=== PATIENT | female | born 1975 | race Caucasian/White ===

== ENCOUNTER 2016-10-06 12:14 | Emergency (ER) | payer OTHER ==
[2016-10-06 12:21] VITALS: BP 174/107
--- NOTE | 2016-10-06 12:53 | ERNOTE ---
Medical Problem HPI - Narrative Date of Service: 10/06/16 - General Chief Complaint: Laceration Time Seen by Provider: 10/06/16 12:43 Source: patient Exam Limitations: no limitations - Immun/Allergies/Home Medications Immunizations: IMMUNIZATION HX Immunizations Up to Date Yes Allergies/Adverse Reactions: Allergies shellfish derived Allergy (Intermediate, Verified 10/06/16 12:21) rash, swelling, difficulty breathing iodine Allergy (Mild, Verified 10/06/16 12:21) rash bee venom (honey bee) Allergy (Verified 10/06/16 12:21) Other Home Medications: HOME MEDICATIONS Lisinopril [Zestril] 20 mg PO DAILY 01/13/13 [Last Taken Unknown] Lorazepam [Ativan] 2 mg PO BID 09/03/15 [Last Taken Unknown] Naproxen [Naprosyn] 500 mg PO BID #20 tablet 04/23/16 [Last Taken Unknown] - History of Present History Narrative: Accidentally cut the tip of 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 Thinks maybe it went down to bone. Timing: other Severity: mild, moderate Modifying Factors - (Improves): Present: rest Modifying Factors - (Worsens): Present: movement Review of Systems - Review of Systems Constitutional: Present: no symptoms reported EYE: Present: no symptoms reported ENT: Present: no symptoms reported Respiratory: Present: no symptoms reported Cardiology: Present: no symptoms reported Gastrointestinal/Abdominal: Present: no symptoms reported Genitourinary: Present: no symptoms reported Musculoskeletal: Present: no symptoms reported Skin: Present: See HPI Neurological: Present: no symptoms reported Endocrine: Present: no symptoms reported Hematologic/Lymphatic: Present: no symptoms reported Psych: Present: no symptoms reported All Other Systems: All systems neg except as marked - Patient's Past Medical History Patient History - Medical: Anxiety, Depression, Migraines Patient History - Cardiac/Respiratory: Hypertension Patient History - Cancer: No Hx of Cancer Patient History - Surgical Procedures: Appendectomy, , D & C, Tubal Ligation Patient History - Other: None LMP (Calendar): 09/01/15 - Social History Living Situations: home Psych History: Hx of Anxiety, Hx of Depression Does anyone smoke in the home?: Yes Smoking Status: Current every day smoker Have you smoked in the past 12 months: Yes Alcohol Use: rarely Drug Use: none - Immunizations Immunizations Up to Date: Yes Physical Exam - Physical Exam General Appearance: Present: wd/wn, no apparent distress Eye Exam: Normal inspection: bilateral, PERRL: bilateral, EOMI: bilateral Ears, Nose, Throat: Present: normal ENT inspection, hearing grossly normal Neck: Present: normal inspection Respiratory: Present: no respiratory distress Cardiovascular/Chest: Present: regular rate, rhythm Extremity Exam: Present: no edema, other - 1 cm laceration, approximated, clean , distal right index finger, not involving nail Neurological Exam: Present: alert, oriented, normal mood/affect, no motor/ sensory deficits Skin Exam: Present: normal color, warm/dry ED Progress - Vital Signs Patient's Vital Signs:: I have reviewed the patient's vital signs. Vital Signs: Vital Signs 10/06/16 12:18 Temperature 35.4 C L Pulse Rate 64 Respiratory 14 Rate Blood Pressure 174/107 O2 Sat by Pulse 98 Oximetry - X-Ray X-Ray #1 X-Ray: hand Interpretation: Interp. by me - no sign of bony involvement - Progress/Reassessment Chief Complaint: Laceration Procedures Right Distal Finger 2nd Digit Length of Repair/Wound (cm): 1 Wound's Depth/Shape: into muscle, linear Wound Explored: clean Wound Intervention: irrigated w/saline Distal NVT: neuro/vasc intact, no tendon injury Wound Repaired With: no closure required Wound Dressing: sterile dressing applied Complications: Pt rod procedure well Departure - Departure Clinical Impression: Laceration Disposition: Home self-care Condition: Good Instructions: Laceration Care, Adult, [id number] Additional Instructions: Keep the wound clean, dry, protected and intact. Come back to our Occupational Health clinic in 2 days. Referrals: Aashish Marte MD [Primary Care Provider] -
[2016-10-06] MEDS ORDERED: DIPHTH,PERTUSS(ACELL),TET VAC 0.5 ML VIAL IM ONE ×2 (12:54→13:05)
== END 2016-10-06 13:56 | disposition home or self-care (01) ==
LOC: ER 12:14
PROC: 2W3JX1Z Immobilization of Right Finger using Splint (ICD-10-PCS; principal; 2016-10-06)
DX: S61.310A Laceration without foreign body of right index finger with damage to nail, initial encounter (principal); F17.210 Nicotine dependence, cigarettes, uncomplicated; I10 Essential (primary) hypertension; F41.9 Anxiety disorder, unspecified; W26.0XXA Contact with knife, initial encounter; Y93.G1 Activity, food preparation and clean up; Y92.511 Restaurant or cafe as the place of occurrence of the external cause; Y99.0 Civilian activity done for income or pay; Z23 Encounter for immunization

== ENCOUNTER 2017-03-17 15:08 | Emergency (ER) | payer OTHER ==
[2017-03-17] MEDS ORDERED: ACETAMINOPHEN 325 MG TABLET PO ONE (16:30)
[2017-03-17] MEDS ORDERED: IBUPROFEN 400 MG TABLET PO ONE (16:30)
--- NOTE | 2017-03-17 16:39 | ERNOTE ---
Lower Extremity HPI - Narrative Date of Service: 03/17/17 - General Lower Extremities Pain: 5th toe: left Time Seen by Provider: 03/17/17 15:49 Source: patient Exam Limitations: no limitations - Immun/Allergies/Home Medications Immunizations: IMMUNIZATION HX Immunizations Up to Date Yes History of Influenza Vaccine No Hx Pneumococcal Vaccination No Allergies/Adverse Reactions: Allergies Allergy/AdvReac Type Severity Reaction Status Date / Time shellfish derived Allergy Intermediate rash, Verified 03/17/17 15:21 swelling, difficulty breathing iodine Allergy Mild rash Verified 03/17/17 15:21 pineapple Allergy Verified 03/17/17 15:21 venom-honey bee Allergy Other Verified 03/17/17 15:21 [bee venom (honey bee)] Home Medications: HOME MEDICATIONS Lisinopril [Zestril] 20 mg PO DAILY 01/13/13 [Last Taken Unknown] Acetaminophen [Tylenol] 650 mg PO QID PRN #30 tablet 03/17/17 [Last Taken Unknown] Ibuprofen [Motrin] 800 mg PO TID PRN #30 tab 03/17/17 [Last Taken Unknown] - Pain Score Pain Score #1 Pain Score: 7 - History of Present Illness Narrative: Patient is a 41 year old female who presents to ER with complaints of pain in left 5th digit after stubbing toe on coffee table about 2100 last night. Took last Tylenol this am. Date (Duration): 03/16/17 Time (Timing): 21:00 Occurred: other - last night Location of Incident: home Method of Injury: Reports: direct blow Reason for Fall: Reports: other - NA Loss of Consciousness: Reports: no loss of consciousness Modifying Factors - (Improves): Reports: cold therapy, immobilization Modifying Factors - (Worsens): Reports: movement Associated Symptoms: Denies: unable to bear weight, snapping, popping sensation , dizzy/light headedness, headache, weakness, sensory loss Other Injuries: Reports: none Subsequent Symptoms: Denies: sensory loss, numbness, motor loss Review of Systems - Review of Systems Constitutional: Present: no symptoms reported EYE: Present: no symptoms reported ENT: Present: no symptoms reported Respiratory: Present: no symptoms reported Cardiology: Present: no symptoms reported Gastrointestinal/Abdominal: Present: no symptoms reported Genitourinary: Present: no symptoms reported Musculoskeletal: Present: joint pain - left 5th digit, joint swelling - left 5th digit Skin: Present: other - bruising to left 5th digit Neurological: Present: no symptoms reported Endocrine: Present: no symptoms reported Hematologic/Lymphatic: Present: no symptoms reported Psych: Present: no symptoms reported - Patient's Past Medical History Patient History - Medical: Anxiety, Depression, Migraines Patient History - Cardiac/Respiratory: Hypertension Patient History - Cancer: No Hx of Cancer Patient History - Surgical Procedures: Appendectomy, , D & C, Tubal Ligation Patient History - Other: None LMP (females 10-50): 1 month LMP (Calendar): 09/01/15 - Social History Living Situations: home Psych History: Hx of Anxiety, Hx of Depression Does anyone smoke in the home?: Yes Alcohol Use: rarely Drug Use: none - Immunizations Immunizations Up to Date: Yes Hx Pneumococcal Vaccination: No History of Influenza Vaccine: No Physical Exam - Physical Exam General Appearance: Present: wd/wn, alert, no apparent distress Head Exam: Present: normal inspection, no evidence of injury Eye Exam: Normal inspection: bilateral, PERRL: bilateral Ears, Nose, Throat: Present: normal ENT inspection, normal pharynx. Absent: dry mucous membranes Neck: Present: normal inspection, nontender, supple, full range of motion, limited range of motion Respiratory: Present: no respiratory distress, normal breath sounds, no accessory muscle use, chest nontender, lungs clear Cardiovascular/Chest: Present: regular rate, rhythm, no murmur, normal peripheral pulses Rectal Exam: Present: deferred Back Exam: Present: normal inspection, normal range of motion, no CVA tenderness , no vertebral tenderness Extremity Exam: Present: normal inspection, normal range of motion, no edema, other - tenderness and bruising to left 5th toe Neurological Exam: Present: alert, oriented, normal mood/affect, no motor/ sensory deficits Skin Exam: Present: normal color, warm/dry Lymphatic Exam: Present: no adenopathy ED Progress - Vital Signs Patient's Vital Signs:: I have reviewed the patient's vital signs. Vital Signs: Vital Signs 03/17/17 15:19 Temperature 36.6 C Pulse Rate 81 Respiratory 16 Rate O2 Sat by Pulse 97 Oximetry - X-Ray X-Ray #1 X-Ray: toe X-ray Comments: No obvious fractures or dislocations - Progress/Reassessment Chief Complaint: Lower Extremity Pain/ Injury Progress:: Unchanged Departure Clinical Impression: Contusion of toe, left Qualifiers: Encounter type: initial encounter Toe: lesser toe Damage to nail status: without damage Qualified Code(s): S90.122A - Contusion of left lesser toe(s) without damage to nail, initial encounter - Departure Disposition: Home self-care Condition: Good Instructions: Foot Contusion, [id number], Form - Excuse from Work, School, or Physical Activity Additional Instructions: Rest, ice, elevate foot as much as possible. Tylenol and Ibuprofen for pain, alternate every 4 hours for pain and swelling. "Jaime Tape" toes together for comfort Referrals: Aashish Marte MD [Primary Care Provider] - Prescriptions: Acetaminophen [Tylenol] 650 mg PO QID PRN #30 tablet PRN Reason: Pain Ibuprofen [Motrin] 800 mg PO TID PRN #30 tab PRN Reason: Pain
[2017-03-17] MEDS ORDERED: ACETAMINOPHEN 325 MG TABLET ONE (16:51)
[2017-03-17] MEDS ORDERED: IBUPROFEN 400 MG TABLET ONE (16:51)
[2017-03-17 19:34] VITALS: BP 127/79
== END 2017-03-17 17:01 | disposition home or self-care (01) ==
LOC: ER 15:08
DX: S90.122A Contusion of left lesser toe(s) without damage to nail, initial encounter (principal); X58.XXXA Exposure to other specified factors, initial encounter; Y93.9 Activity, unspecified; Y92.009 Unspecified place in unspecified non-institutional (private) residence as the place of occurrence of the external cause